=== PATIENT | female | born 1995 | race Caucasian/White ===

== ENCOUNTER 2017-07-07 14:30 | Inpatient (IN) | payer OTHER ==
[2017-07-07] MEDS ORDERED: TUBERCULIN PPD 5 TU/0.1ML SYRINGE (IN PATIENT USE ONLY) ID ONE (15:28)
[2017-07-07] MEDS ORDERED: AMPICILLIN - 2 GM in SODIUM CHLORIDE 100 ML IVPB ONE (15:30)
[2017-07-07 16:17] LABS: URINE APPEARANCE CLEAR; URINE BILIRUBIN NEGATIVE (NEGATIVE); URINE BLOOD NEGATIVE (NEGATIVE); URINE COLOR LTYELLOW; URINE GLUCOSE (UA) NEGATIVE (NEGATIVE); URINE KETONE NEGATIVE (NEGATIVE); URINE LEUK ESTERASE TRACE (NEGATIVE); URINE NITRITE NEGATIVE (NEGATIVE); URINE PROTEIN NEGATIVE (NEGATIVE); URINE UROBILINOGEN NEGATIVE mg/dL (0.2-1.0)
[2017-07-07 16:30] VITALS: BMI 19.5
--- NOTE | 2017-07-07 16:42 | HP ---
Past Medical History - Primary Care Physician PCP:: Bradford Clark - Admission Chief Complaint: 39,3 weeks, rom, labor History of Present Illness: 22 yo f 39.3 weeks, c/o rom since 1 pm today , has contraction, cx 1cm 80 vx -2 mr, clear fhr cat 1, contraction q 2 min - Past Medical History ...: 1 ...Para: 0 ...Term: 0 ...: 0 ...Spon : 0 ...Induced : 0 ...Multiple Gestation: 0 ...EDC by Sono: 07/13/17 - Past Surgical History Hx Myomectomy: No Hx Transabdominal Cerclage: No - Smoking History Smoking history: Never smoked Have you smoked in the past 12 months: No - Alcohol/Substance Use Hx Alcohol Use: No Home Medications - Allergies Allergies/Adverse Reactions: Allergies Allergy/AdvReac Type Severity Reaction Status Date / Time No Known Allergies Allergy Verified 07/07/17 16:07 - Home Medications Home Medications: Ambulatory Orders Vitamins (Sjr) - 1 tab PO DAILY 07/07/17 Ibuprofen [Motrin -] 600 mg PO QID #28 tablet 07/09/17 Physical Exam - Maternity Vital Signs: Vital Signs Temperature Pulse Rate 76 07/07/17 15:45 Respiratory Rate 20 07/07/17 15:45 Blood Pressure 114/82 07/07/17 15:45 O2 Sat by Pulse Oximetry (%)
[2017-07-07] MEDS ORDERED: DEXTROSE 5%-LACTATED RINGERS 1,000 ML IV SCH (16:45)
[2017-07-07 16:54] LABS: URINE BACTERIA RARE /hpf (NONE SEEN); URINE RBC <1 /hpf (0-3); URINE WBC 4 /hpf (3-5)
[2017-07-07 17:04] LABS: BASOPHIL 0.4 % (0-2.0); EOSINOPHIL 0.4 % (0-4.5); MCH 27.6 pg (25.7-33.7); MCHC 32.3 g/dl (32.0-36.0); MEAN CELL VOLUME 85.4 fl (80-96); MEAN PLT VOLUME 10.2 fl (7.5-11.1); NEUTROPHILS 71.9 % (42.8-82.8); PLATELET COUNT 221 K/MM3 (134-434); RDW 15.7 % (11.6-15.6); WHITE BLOOD COUNT 11.1 K/mm3 (4.0-10.0)
[2017-07-07] MEDS ORDERED: PROMETHAZINE HCL 25 MG/1 ML VIAL IVPB ONE (17:10)
[2017-07-07] MEDS ORDERED: BUTORPHANOL TARTRATE 1 MG/ML VIAL IVPB ONE (17:10)
[2017-07-07 17:11] LABS: ALBUMIN 2.3 g/dl (3.4-5.0); ALK PHOS 297 U/L (45-117); ANION GAP 9 (8-16); BILIRUBIN,TOTAL 0.7 mg/dL (0.2-1.0); CALCIUM 8.4 mg/dL (8.5-10.1); CO2 24 mmol/L (21-32); CREATININE 0.6 mg/dL (0.55-1.02); GLUCOSE,RANDOM 111 mg/dL (74-106); SGOT/AST 16 U/L (15-37); SGPT/ALT 10 U/L (12-78); TOT PROT 6.4 g/dl (6.4-8.2); URIC ACID 5.5 mg/dL (2.6-7.2)
[2017-07-07] MEDS: AMPICILLIN - 1 GM in SODIUM CHLORIDE 100 ML IVPB SCH (18:34)
[2017-07-07] MEDS ORDERED: IBUPROFEN 600 MG TABLET (FP) PO PRN (19:38)
[2017-07-07] MEDS ORDERED: METHYLERGONOVINE MALEATE 0.2 MG/1 ML AMP IM PRN (19:38)
[2017-07-07] MEDS ORDERED: BENZOCAINE 20% 57 GM BOTTLE TP PRN (19:38)
[2017-07-07] MEDS ORDERED: ACETAMINOPHEN 325 MG TABLET (FP) PO PRN (19:38)
[2017-07-07] MEDS ORDERED: oxyCODONE HCL 5 MG TABLET PO PRN (19:38)
[2017-07-07] MEDS ORDERED: WITCH HAZEL 50% (TUCKS) 40 PAD/JAR PAD TP PRN (19:38)
[2017-07-07] MEDS ORDERED: BENZOCAINE 28 GM HEMORRHOIDAL OINTMENT TP PRN (19:38)
[2017-07-07] MEDS ORDERED: BISACODYL 10 MG SUPP.RECT RC PRN (19:38)
[2017-07-07] MEDS ORDERED: D5W-LR W/ 20 UNITS OXYTOCIN 1,000 ML IV SCH (19:45)
[2017-07-07 20:59] LABS: VENOUS BLOOD GAS HCO3 21.7 meq/L (19-25)
[2017-07-07 21:01] LABS: VENOUS PH 7.21 (7.32-7.42)
[2017-07-07 21:02] LABS: ARTERIAL BLD GAS O2 SATURATION 49.1 % (90-98.9); ARTERIAL BLOOD GAS BASE EXCESS -6.4 meq/l (-2-2); ARTERIAL BLOOD GAS HCO3 21.7 meq/L (22-26); ARTERIAL BLOOD GAS PO2 26.5 mmHg (80-100)
[2017-07-07 21:03] LABS: PT. ON O2? NO
[2017-07-07 21:04] LABS: ARTERIAL BLOOD GAS pH 7.23 (7.35-7.45)
[2017-07-07 23:08] LABS: INR 0.88 (0.82-1.09); PROTHROMBIN TIME (PATIENT) 9.7 SEC (9.98-11.88)
[2017-07-07 23:11] LABS: ACTIVATED PTT 26.6 SECONDS (26.9-34.4)
[2017-07-08] MEDS: FERROUS SO4 325 MG TABLET (FP) PO SCH ×3 (03:45→21:42)
[2017-07-08] MEDS: AMPICILLIN - 1 GM in SODIUM CHLORIDE 100 ML IVPB SCH (03:45)
[2017-07-08 07:47] LABS: BASOPHIL 0.4 % (0-2.0); MCHC 33.1 g/dl (32.0-36.0); MEAN CELL VOLUME 84.4 fl (80-96); MEAN PLT VOLUME 10.2 fl (7.5-11.1); NEUTROPHILS 74.8 % (42.8-82.8); PLATELET COUNT 217 K/MM3 (134-434); RDW 15.5 % (11.6-15.6); WHITE BLOOD COUNT 19.7 K/mm3 (4.0-10.0)
[2017-07-08] MEDS: PRENATAL VITAMINS W/ FOLIC ACID TABLET (FP) PO SCH (09:54)
--- NOTE | 2017-07-08 12:52 | PN ---
Progress Note (short form) - Note Progress Note: [id number] well, no c/o voids Last Vital Signs Temp Pulse Resp BP Pulse Ox 98.6 F 60 18 132/76 99 07/08/17 10:00 07/08/17 10:00 07/08/17 10:00 07/08/17 10:00 07/07/17 21:00 Last Vital Signs Temp Pulse Resp BP Pulse Ox 98.6 F 60 18 132/76 99 07/08/17 10:00 07/08/17 10:00 07/08/17 10:00 07/08/17 10:00 07/07/17 21:00 abdomen soft, no distension, no cva uterus firm, non tender lochia mild no calf tenderness plan ambualte, d/c home in am
[2017-07-08] MEDS ORDERED: SENNOSIDES/DOCUSATE COMBO (SENNA PLUS) TABLET (UD) PO PRN (22:00)
[2017-07-09 08:09] VITALS: BP 132/71; PULSE 70; TEMP 98
[2017-07-09] MEDS: FERROUS SO4 325 MG TABLET (FP) PO SCH (09:19)
[2017-07-09] MEDS: PRENATAL VITAMINS W/ FOLIC ACID TABLET (FP) PO SCH (09:19)
--- NOTE | 2017-07-09 10:38 | DS ---
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: Vital Signs Temperature 98 F 07/09/17 08:07 Pulse Rate 70 07/09/17 08:07 Respiratory Rate 18 07/09/17 08:07 Blood Pressure 132/71 07/09/17 08:07 O2 Sat by Pulse Oximetry (%) 99 07/07/17 21:00 Constitutional: Yes: Well Nourished, No Distress, Calm Eyes: Yes: WNL, Conjunctiva Clear, EOM Intact HENT: Yes: WNL, Atraumatic, Normocephalic Neck: Yes: WNL, Supple, Trachea Midline Cardiovascular: Yes: WNL, Regular Rate and Rhythm Respiratory: Yes: WNL, Regular, CTA Bilaterally Gastrointestinal: Yes: WNL ...Rectal Exam: Yes: WNL Renal/: Yes: WNL ....Post : Yes: Uterus firm, Uterus non-tender, Slight lochia rubra Breast(s): Yes: WNL Musculoskeletal: Yes: WNL Extremities: Yes: WNL Edema: No Integumentary: Yes: WNL Neurological: Yes: WNL, Alert, Oriented ...Motor Strength: WNL Psychiatric: Yes: WNL, Alert, Oriented Labs: CBC, BMP 07/08/17 07:35 07/07/17 15:30 Delivery - Delivery Vaginal Delivery: Spontaneous (no complication) Type of Anesthesia: Local Episiotomy/Laceration: 1st degree EBL (cc): 300 Delivery, Single - Stages of Labor Date 1st Stage Initiatied: 07/07/17 Time 1st Stage Initiated: 13:00 Date 2nd Stage Initiated: 07/07/17 Time 2nd Stage Initiated: 19:30 Date of Delivery: 07/07/17 Time of Delivery: 19:54 Time Placenta Delivered: 19:55 Placenta: Yes: Spontaneous (no complication) - Condition of Electrolytic De Scaler/Burr 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 Referrals: [facility] (Sujey Dudley) [Outside] - Home Medications Comprehensive Discharge Medication List: Ambulatory Orders Vitamins (Sjr) - 1 tab PO DAILY 07/07/17
== END 2017-07-09 14:25 | disposition home or self-care (01) | DRG 560 ==
LOC: JDEL 14:30 → JLDR 15:03 → J3N 07-08 02:50
PROVIDERS: ADMIT Obstetrics & Gynecology; ATTEND Obstetrics & Gynecology
PROC: 10E0XZZ Delivery of Products of Conception, External Approach (ICD-10-PCS; principal; 2017-07-07)
PROC: 0W8NXZZ Division of Female Perineum, External Approach (ICD-10-PCS; 2017-07-07)
PROC: 0HQ9XZZ Repair Perineum Skin, External Approach (ICD-10-PCS; 2017-07-07)
DX: O70.0 First degree perineal laceration during delivery (principal); Z3A.39 39 weeks gestation of pregnancy; Z37.0 Single live birth
CPT/HCPCS: 36415; 36600; 59409; 80053; 81003; 81015; 82803; 84550; 85025; 85610; 85730; 86593; 86850; 86900; 86901